=== PATIENT | male | born 1940 ===

== ENCOUNTER 2023-01-15 04:11 | Emergency (ER) | payer MEDICARE ==
[~2023-01-15] VITALS: Ht 162.5 cm; Wt 68.0 kg
[2023-01-15 04:34] LABS: BASO % 0.7 % (0.0-1.0); EOS # 0.1 10*3/uL (0.0-0.4); EOS % 1.8 % (1.0-4.0); HEMATOCRIT 34.7 % (42.0-52.0); LYMPH # 0.9 10*3/uL (1.3-4.4); LYMPH % 16.7 % (27.0-41.0); MEAN CELL VOLUME 96.4 fl (80.0-94.0); MEAN CORPUSCULAR HGB 32.2 pg (27.0-31.0); MEAN CORPUSCULAR HGB CONC 33.4 g/dl (33.0-37.0); MEAN PLATELET VOLUME 9.7 fl (9.6-12.3); MONO # 0.5 10*3/uL (0.1-1.0); MONO % 9.9 % (3.0-9.0); NEUT # 3.8 10*3/uL (2.3-7.9); NEUT % 70.4 % (47.0-73.0); PLATELET COUNT AUTOMATED 135 10*3/uL (130-400); RED CELL DISTRI WIDTH 12.9 % (0-14.5); WHITE BLOOD COUNT 5.5 10*3/uL (4.8-10.8)
[2023-01-15 04:47] LABS: ACT PARTIAL THROMBO TIME 25.9 SECONDS (20.0-32.1)
[2023-01-15 04:55] LABS: ALKALINE PHOSPHATASE 87 U/L (46-116); BUN 22 mg/dl (9-23); CHLORIDE 110 mmol/L (98-107); SGPT/ALT 18 U/L (10-49); TOTAL PROTEIN 6.8 gm/dL (6.0-8.0)
[2023-01-15 06:05] LABS: BILIRUBIN Negative (Negative); BLOOD Negative (Negative); CLARITY Clear (Clear); COLOR Yellow (Yellow); GLUCOSE 1+ (Negative); KETONE Negative (Negative); LEUKO ESTERASE Negative (Negative); NITRITE Negative (Negative); PH 5.5 (4.5-8.0); SPECIFIC GRAVITY 1.015 (1.001-1.030)
[2023-01-15 06:12] LABS: URINE AMPHETAMINES Negative (1000ng/ml); URINE BARBITURATES Negative (200ng/ml); URINE BENZODIAZEPINES Negative (200ng/ml); URINE CANNABINOIDS (THC) Negative (50ng/ml); URINE COCAINE Negative (300ng/ml); URINE METHADONE Negative (300ng/ml); URINE OPIATES Negative (300ng/ml); URINE PHENCYCLIDINE Negative (25ng/ml)
[2023-01-15 06:26] LABS: EPITHELIAL CELLS 0-2; RBC 0-2 rbc/hpf (0-2); YEAST TRACE
[2023-01-15] MEDS ORDERED: HYDROCODONE-AC1 EAC1 PO (08:16)
== END 2023-01-15 08:32 | disposition home or self-care (01) ==
LOC: ED 04:11
PROVIDERS: Emergency Medicine
DX: S01.81XA Laceration without foreign body of other part of head, initial encounter (principal); F03.90 Unspecified dementia, unspecified severity, without behavioral disturbance, psychotic disturbance, mood disturbance, and anxiety; Z88.8 Allergy status to other drugs, medicaments and biological substances; Z91.040 Latex allergy status; Z90.49 Acquired absence of other specified parts of digestive tract; Z98.890 Other specified postprocedural states; Z79.899 Other long term (current) drug therapy; W19.XXXA Unspecified fall, initial encounter; Y93.89 Activity, other specified; Y92.89 Other specified places as the place of occurrence of the external cause; Y99.8 Other external cause status

== ENCOUNTER 2024-08-13 16:05 | Emergency (ER) | payer MEDICARE ==
[~2024-08-13] VITALS: Ht 162.5 cm; Wt 68.0 kg
[~2024-08-13 16:05] MED LIST: HYDROCODONE-AC1 EAC1 PO
[2024-08-13] MEDS ORDERED: MORPHINE Sulfate 2 MG/ML SYR IV ONE (16:10)
[2024-08-13] MEDS ORDERED: Ondansetron Hydrochloride 4 MG/2 ML VIAL IV ONE (16:10)
[2024-08-13] MEDS ORDERED: CARVEDILOL3.125 MG PO (16:33)
[2024-08-13] MEDS ORDERED: COREG3.125 MG PO (16:33)
[2024-08-13] MEDS ORDERED: ATORVASTATIN CA20 M1 PO (16:34)
[2024-08-13] MEDS ORDERED: GABAPENTIN100 M2 PO (16:34)
[2024-08-13] MEDS ORDERED: DONEPEZIL HCL10 MG PO (16:35)
[2024-08-13] MEDS ORDERED: LEVOTHYROXINE112 MCG PO (16:36)
[2024-08-13] MEDS ORDERED: ENTRESTO 24 MG1 EACH PO (16:36)
[2024-08-13] MEDS ORDERED: LEADER NATUR1000 MCG PO (16:37)
[2024-08-13] MEDS ORDERED: AMIODARONE HYD200 MG PO (16:38)
[2024-08-13] MEDS ORDERED: MEMANTINE HCL5 MG PO (16:38)
[2024-08-13 16:39] LABS: BASO % 0.6 % (0.0-1.0); EOS # 0.1 10*3/uL (0.0-0.4); EOS % 1.7 % (1.0-4.0); MEAN CELL VOLUME 100.3 fl (80.0-94.0); MEAN CORPUSCULAR HGB 32.7 pg (27.0-31.0); MEAN CORPUSCULAR HGB CONC 32.6 g/dl (33.0-37.0); MEAN PLATELET VOLUME 9.9 fl (9.6-12.3); MONO # 0.8 10*3/uL (0.1-1.0); MONO % 11.3 % (3.0-9.0); NEUT # 4.8 10*3/uL (2.3-7.9); NEUT % 72.7 % (47.0-73.0); PLATELET COUNT AUTOMATED 131 10*3/uL (130-400); RED BLOOD COUNT 3.49 10*6/uL (4.50-5.90); RED CELL DISTRI WIDTH 13.2 % (0-14.5); WHITE BLOOD COUNT 6.6 10*3/uL (4.8-10.8)
[2024-08-13 16:55] LABS: BUN 22 mg/dl (9-23); CHLORIDE 111 mmol/L (98-107); POTASSIUM 3.8 mmol/L (3.4-5.1)
== END 2024-08-13 17:26 | disposition home or self-care (01) ==
LOC: ED 16:05
PROVIDERS: Emergency Medicine
DX: R07.89 Other chest pain (principal); I10 Essential (primary) hypertension; E78.5 Hyperlipidemia, unspecified; Z88.8 Allergy status to other drugs, medicaments and biological substances; Z79.899 Other long term (current) drug therapy; Z98.890 Other specified postprocedural states; Z90.49 Acquired absence of other specified parts of digestive tract